=== PATIENT | male | born 1965 | race Asian ===

== ENCOUNTER 2016-10-06 12:15 | Day surgery (SDC) | payer BC ==
[~2016-10-06] VITALS: Ht 167.6 cm; Wt 78.3 kg
[2016-10-06 12:56] VITALS: Ht 167.6 cm; Wt 78.3 kg
[2016-10-06 13:23] VITALS: BP 137/88; PULSE 84; RESP 21
[2016-10-06] MEDS ORDERED: PROPOFOL 40 ML ONE (14:54)
[2016-10-06 15:45] VITALS: BP 140/94; RESP 20
--- NOTE | 2016-10-06 22:28 | GILP ---
DATE OF PROCEDURE: 10/06/2016 NAME OF PROCEDURE: Colonoscopy with biopsies plus localization tattoo, colonoscopy with polyp ablat ion. SURGEON: Linsey Luna MD HISTORY AND INDICATIONS: The patient is being evaluated for colorectal cancer screening. PREMEDICATION: Monitored anesthesia care by anesthesiologist. INSTRUMENT USED: Olympus colonoscope. PREPARATION: Adequate. TECHNIQUE: After informed consent, with the patient/relatives understanding the procedure, its ruperto cations potential risks and complications, including but not limited to allergic reaction, bleeding, perforation, infection, missed lesions, and after all pertinent questions were answered to the jared ent's satisfaction, the patient/relatives signed the witnessed informed consent. Following this, premedication was administered slowly IV push by under careful cardiovascular and re spiratory monitoring with pulse oximetry, automatic blood pressure and drop board worker. Once the sedativ e effect was achieved, the patient was placed in the left lateral decubitus position, digital rectal examination was performed. The colonoscope was then introduced and advanced under visual control th roughout all segments of the colon including the rectum, sigmoid, descending colon, splenic flexure, transverse colon, hepatic flexure, ascending colon and finally reaching the cecum which was clearly identified by transillumination, finger indentation and the ileocecal valve. Careful examination of the mucosa of the lower gastrointestinal tract both on insertion as well as withdrawal of the instr ument disclosed the following findings: Rectal Examination: No evidence of perirectal disease, no masses. Colonic Mucosa: The colonic mucosa is unremarkable with exception of 4 mm sessile polyp in the dist al sigmoid colon which was ablated. As we reached the proximal ascending colon, there is a large ma ss/ulceration in the proximal ascending colon highly suspicious for malignant neoplasm. Biopsies we re obtained. Localization tattoo was applied. The mass shows partial obstruction. The instrument was withdrawn, re-examining the mucosa in detail. The instrument was withdrawn, re-examining the mucosa in detail. No additional abnormalities are no lizzie with exception of moderate-sized internal hemorrhoids. The instrument was then withdrawn. The patient tolerated the procedure well and was transferred out of the endoscopy suite awake and in good condition to continue recovery under observation. IMPRESSION: 1. Large mass/ulceration in proximal ascending colon, partially obstructing, rule out carcinoma. B iopsies obtained, localization tattoo applied. 2. A 4 mm sessile polyp in the distal sigmoid colon, ablated. 3. Moderate-sized internal hemorrhoids. PLAN: Pathology will be reviewed as soon as available. The patient will require surgical excision of this lesion. A CT of the abdomen and pelvis will be requested. Dictated By: LINSEY LUNA MS/DALE Conf#: [id number] DID#: [id number]
== END 2016-10-06 19:52 | disposition home or self-care (01) ==
LOC: GIL 12:15
PROVIDERS: ATTEND Internal Medicine Gastroenterology
DX: Z12.11 Encounter for screening for malignant neoplasm of colon (principal); D12.2 Benign neoplasm of ascending colon; D12.5 Benign neoplasm of sigmoid colon; K64.8 Other hemorrhoids; K51.90 Ulcerative colitis, unspecified, without complications
CPT/HCPCS: 45380; 45381; 88305; Z7610